=== PATIENT | female | born 1995 | race American Indian/Alaskan Native ===

== ENCOUNTER 2019-11-07 11:07 | Outpatient (CLI) | payer BC, MEDICAID ==
[2019-11-07] MEDS ORDERED: LACTATED RINGERS 1,000 ML ONE (12:24)
[2019-11-07 12:51] LABS: Hematocrit 31.5 % (30.3-42.9); Hemoglobin 10.5 gm/dl (10.1-14.3); Mean Corpuscular HGB Conc 33 % (30-34); Mean Corpuscular Volume 82 fl (79-97); Platelet Count 250 K/mm3 (140-440); Red Blood Count 3.84 M/mm3 (3.65-5.03); Red Cell Distribution Width 15.5 % (13.2-15.2)
[2019-11-07 13:08] LABS: Bacteria,Urine 1+ /HPF (Negative); Bilirubin,Urine NEG (Negative); Blood,Urine NEG (Negative); Color,Urine Yellow (Yellow); Mucus,Urine FEW /HPF; Protein,Urine <15 mg/dL mg/dL (Negative); Urobilinogen,Urine < 2.0 mg/dL (<2.0)
[2019-11-07] MEDS ORDERED: LACTATED RINGERS 1,000 ML IV ONE (13:08)
[2019-11-07 14:24] VITALS: BP 157/96
--- NOTE | 2019-11-07 14:47 | Event Note ---
Date: 11/07/19 Patient with CHTN, noncompliant with care +ve CTX, FFN positive BP>160/110 patient wants to leave,advised she needs to sign out against medical advice I advised patient that it is my recommendation that she be admitted for a course of steroids and a complete PIH workup She is aware of the risks of leaving against medical advise includes significant morbidity and mortality to herself and to the fetus She is advised to folow up in one week with her provider Maria Del Carmen Mendoza MD
[2019-11-07 15:16] LABS: Alanine Aminotransferase 27 units/L (7-56)
[2019-11-07 17:39] LABS: Uric Acid 5.1 mg/dL (3.5-7.6)
== END 2019-11-07 14:36 | disposition left against medical advice (07) ==
LOC: TRG 11:07
PROVIDERS: ATTEND Obstetrics & Gynecology
DX: O13.3 Gestational [pregnancy-induced] hypertension without significant proteinuria, third trimester (principal); O62.9 Abnormality of forces of labor, unspecified; Z3A.32 32 weeks gestation of pregnancy
CPT/HCPCS: 36415; 81001; 82565; 82731; 83615; 84450; 84460; 84550; 85027; 87086; 96360; J7120

== ENCOUNTER 2019-11-09 01:58 | Outpatient (CLI) | payer BC, MEDICAID ==
[2019-11-09] MEDS ORDERED: LACTATED RINGERS 1,000 ML IV ONE (02:08)
[2019-11-09 02:58] LABS: Hematocrit 32.8 % (30.3-42.9); Hemoglobin 10.9 gm/dl (10.1-14.3); Mean Corpuscular HGB Conc 33 % (30-34); Mean Corpuscular Volume 82 fl (79-97); Platelet Count 261 K/mm3 (140-440); Red Cell Distribution Width 15.3 % (13.2-15.2)
[2019-11-09 03:15] LABS: Alanine Aminotransferase 25 units/L (7-56)
[2019-11-09] MEDS ORDERED: ACETAMINOPHEN 500 MG TAB PO ONE (03:19)
[2019-11-09 03:20] LABS: Bacteria,Urine 1+ /HPF (Negative); Bilirubin,Urine NEG (Negative); Blood,Urine NEG (Negative); Color,Urine Yellow (Yellow); Mucus,Urine 2+ /HPF
[2019-11-09 03:50] LABS: Uric Acid 5.8 mg/dL (3.5-7.6)
[2019-11-09 04:09] VITALS: BP 127/65
[2019-11-09] MEDS ORDERED: BETAMET ACET/BETAMET NA PH 6 MG/ML INJ 5 ML MDV IM ONE (05:34)
== END 2019-11-09 05:05 | disposition home or self-care (01) ==
LOC: TRG 01:58
PROVIDERS: ATTEND Obstetrics & Gynecology
DX: O13.3 Gestational [pregnancy-induced] hypertension without significant proteinuria, third trimester (principal); O26.893 Other specified pregnancy related conditions, third trimester; R51 Headache; Z3A.32 32 weeks gestation of pregnancy
CPT/HCPCS: 36415; 59025; 81001; 82565; 83615; 84450; 84460; 84550; 85027; 87086; 96372; J0702

== ENCOUNTER 2019-11-10 11:15 | Outpatient (CLI) | payer BC, MEDICAID ==
[2019-11-10] MEDS ORDERED: BETAMET ACET/BETAMET NA PH 6 MG/ML INJ 5 ML MDV IM ONE (11:22)
== END 2019-11-10 11:37 | disposition home or self-care (01) ==
LOC: TRG 11:15
PROVIDERS: ATTEND Obstetrics & Gynecology
DX: O47.03 False labor before 37 completed weeks of gestation, third trimester (principal); Z3A.32 32 weeks gestation of pregnancy
CPT/HCPCS: 96372; J0702

== ENCOUNTER 2019-11-12 01:01 | Outpatient (CLI) | payer BC, MEDICAID ==
[2019-11-12 02:36] VITALS: BP 124/68
[2019-11-12] MEDS ORDERED: ACETAMINOPHEN 325 MG TAB PO ONE (02:41)
== END 2019-11-12 03:00 | disposition home or self-care (01) ==
LOC: TRG 01:01
PROVIDERS: ATTEND Obstetrics & Gynecology
DX: O36.8130 Decreased fetal movements, third trimester, not applicable or unspecified (principal); Z3A.32 32 weeks gestation of pregnancy

== ENCOUNTER 2019-11-14 01:05 | Inpatient (IN) | payer BC, MEDICAID ==
[2019-11-14] MEDS ORDERED: BUTORPHANOL 2 MG/1 ML INJ IV PRN (02:14)
[2019-11-14] MEDS ORDERED: fentaNYL 100 MCG/2 ML INJ IV PRN (02:14)
[2019-11-14] MEDS ORDERED: AMPICILLIN/NS 2 GM/100 ML 2 GM/100 ML BAG IV ONE (02:29)
[2019-11-14] MEDS ORDERED: AMPICILLIN/NS 2 GM/100 ML 2 GM/100 ML BAG IV SCH (03:00)
[2019-11-14] MEDS ORDERED: LACTATED RINGERS 1,000 ML IV SCH (03:00)
[2019-11-14 03:06] LABS: Hematocrit 34.9 % (30.3-42.9); Hemoglobin 11.5 gm/dl (10.1-14.3); Mean Corpuscular HGB Conc 33 % (30-34); Mean Corpuscular Volume 83 fl (79-97); Platelet Count 274 K/mm3 (140-440); Red Blood Count 4.22 M/mm3 (3.65-5.03); Red Cell Distribution Width 15.4 % (13.2-15.2)
[2019-11-14 03:36] LABS: Alanine Aminotransferase 19 units/L (7-56)
[2019-11-14 03:54] LABS: Uric Acid 4.8 mg/dL (3.5-7.6)
[2019-11-14] MEDS ORDERED: hydrALAZINE 20 MG/1 ML INJ IV ONE (04:12)
[2019-11-14] MEDS ORDERED: MAGNESIUM SULFATE 6 GM in SODIUM CHLORIDE 0.9% 100 ML IV ONE (05:00)
[2019-11-14] MEDS ORDERED: MAGNESIUM SULFATE 40GM/1000ML 40 GM/1,000 ML BAG IV SCH (05:00)
[2019-11-14 06:03] LABS: Bilirubin,Urine NEG (Negative); Blood,Urine MOD (Negative); Color,Urine Straw (Yellow); Mucus,Urine FEW /HPF; Protein,Urine <15 mg/dL mg/dL (Negative); Urobilinogen,Urine < 2.0 mg/dL (<2.0)
[2019-11-14] MEDS ORDERED: OXYTOCIN 20 UNIT/1000ML DRIP 20,000 MILLIUNITS/1,000 ML BAG IV ONE ×2 (07:31→10:19)
--- NOTE | 2019-11-14 07:54 | History and Physical Report ---
History of Present Illness Date of examination: 11/14/19 Date of admission: 11/14/19 01:23 Chief complaint: PPROM History of present illness: Patient admitted with PPROM GFM, no VB Past History - Obstetrical History : 1 Medications and Allergies Allergies Allergy/AdvReac Type Severity Reaction Status Date / Time No Known Allergies Allergy Verified 11/12/19 01:43 Home Medications Medication Instructions Recorded Confirmed Last Taken Type labetaloL [Labetalol 200mg TAB] 200 mg PO BID 11/12/19 11/14/19 11/13/19 17:00 History Pnv Plus Multivit Tab 1 tab PO QDAY 11/14/19 11/14/19 11/13/19 15:00 History Active Meds: Active Medications Butorphanol Tartrate (Stadol) 2 mg IV Q2H PRN PRN Reason: Pain , Severe (7-10) Last Admin: 11/14/19 04:18 Dose: 2 mg Documented by: Fentanyl (Sublimaze) 100 mcg IV Q2H PRN PRN Reason: Labor Pain Lactated Ringer's (Lactated Ringers) 1,000 mls @ 125 mls/hr IV DIRECT SUNIL Last Admin: 11/14/19 04:55 Dose: 75 mls/hr Documented by: Ampicillin Sodium (Ampicillin/Ns 2 Gm/100 Ml) 2 gm in 100 mls @ 100 mls/hr IV Q6H SUNIL; Protocol Last Admin: 11/14/19 02:30 Dose: 100 mls/hr Documented by: Magnesium Sulfate (Magnesium Sulfate 40gm/1000ml) 40 gm in 1,000 mls @ 50 mls/hr IV DIRECT SUNIL - Vital Signs Vital signs: Vital Signs Pulse BP 77 166/94 11/14/19 01:27 11/14/19 01:27 Temp Pulse Resp BP Pulse Ox 107 H 156/87 98 11/14/19 07:53 11/14/19 07:53 11/14/19 07:52 - Physical Exam Deep Tendon Reflex Grade: Normal +2 - Obstetrical FHR: category 1 Uterine Contraction Monitor Mode: External Cervical Dilatation: 0 Cervical Effacement Percentage: 0 station: -4 Results Result Diagrams: 11/14/19 02:20 11/14/19 02:20 Abnormal lab results 11/14/19 11/14/19 Range/Units 02:20 02:20 WBC 15.1 H (4.5-11.0) K/mm3 MCH 27 L (28-32) pg RDW 15.4 H (13.2-15.2) % Creatinine 0.5 L (0.7-1.2) mg/dL Lactate Dehydrogenase 428 H (91-180) units/L All other labs normal. Assessment and Plan admission steroids antibiotics magnesium sulfate CFM expect MARCELINO Mendoza MD
--- NOTE | 2019-11-14 08:01 | Procedure Note ---
OB Delivery Note - Delivery Date of Delivery: 11/14/19 Surgeon: CHANTEL OCONNOR Estimated blood loss: other (150ml) - Vaginal Delivery position: OA Intrapartum events: labor-<37 weeks, PROM->1hr before delivery Delivery induction: none Delivery monitor: external FHT, external uterine Route of delivery: Delivery placenta: spontaneous Delivery cord: 3 umbilical vessels Episiotomy: none Delivery laceration: none Delivery comments: PAtient noted to be complete. She pushed to delivery of a viable male with weight and . No nuchal cord, delivery of anterior shoulder atrauma tic.Cord clamped and cut and baby handed to waiting NICU team. Spontaneous cry at delivery. An intact placenta with three vessel cord delivered spontaneously Firm fundus. No lacerations. EBL 150ml. All sponge, needle and instrument counts correctx2. MOm and baby stable to /NICU. Vielka ROPER
[2019-11-14] MEDS ORDERED: HYDROcodone/ACETAMINOPHEN 5-325 MG TAB PO PRN (09:00)
[2019-11-14] MEDS ORDERED: ONDANSETRON 4 MG/2 ML INJ IV PRN (09:00)
[2019-11-14] MEDS ORDERED: PROMETHAZINE 25 MG RECT SUPP PR PRN (09:00)
[2019-11-14] MEDS ORDERED: diphenhydrAMINE 25 MG CAP PO PRN (09:00)
[2019-11-14] MEDS ORDERED: LANOLIN/ZINC/DIMETHICONE (LANSINOH) 7 GM TP PRN (09:00)
[2019-11-14] MEDS ORDERED: ACETAMINOPHEN 325 MG TAB PO PRN (09:00)
[2019-11-14] MEDS ORDERED: WITCH HAZEL/ GLYCERIN PAD TP PRN (09:00)
[2019-11-14] MEDS ORDERED: PROMETHAZINE 25 MG TAB PO PRN (09:00)
[2019-11-14] MEDS: PRENATAL VIT27-FE FUMARATE-FOLIC ACID VIT TAB PO SCH (13:38)
[2019-11-14] MEDS: IBUPROFEN 600 MG TAB PO SCH ×2 (13:38→23:35)
[2019-11-14] MEDS ORDERED: OXYTOCIN 20 UNIT/1000ML DRIP 20 UNITS/1,000 ML BAG IV SCH (14:30)
[2019-11-14] MEDS ORDERED: MAGNESIUM HYDROXIDE (MOM) ORAL LIQD UDC PO PRN (22:00)
[2019-11-15 00:18] LABS: Hemoglobin 10.1 gm/dl (10.1-14.3)
--- NOTE | 2019-11-15 10:47 | Progress Note ---
Assessment and Plan - Patient Problems (1) Status post normal vaginal delivery Current Visit: Yes Status: Acute Plan to address problem: PPD 1 - stable Continue routine orders Anticipate discharge in 24 hours (2) delivery Current Visit: Yes Status: Acute (3) Anemia due to blood loss, acute Current Visit: Yes Status: Acute Plan to address problem: Asymptomatic Iron therapy initiated (4) Gestational hypertension Current Visit: Yes Status: Acute Qualifiers: Trimester: third trimester Qualified Code(s): O13.3 - Gestational [-induced] hypertension without significant proteinuria, third trimester Plan to address problem: Asymptomatic - VSS, PIH labs wnl Continue Labetalol 100mg PO BID (5) Rh negative status during Current Visit: Yes Status: Acute Qualifiers: Trimester: third trimester Qualified Code(s): O26.893 - Other specified related conditions, third trimester; Z67.91 - Unspecified blood type, Rh negative Plan to address problem: Rhogam workup ordered Subjective - Subjective Date of service: 11/15/19 Principal diagnosis: PPD #1; s/p Interval history: see H&P and OB Delivery Procedure Note Patient reports: appetite normal, voiding normally, pain well controlled, am bulating normally, other (denies headache, visual disturbances or RUQ pain), no dizzy ambulation Runge: in NICU Objective - Vital Signs Latest vital signs: Vital Signs Temp Pulse Resp BP BP Pulse Ox 11/15/19 07:30 98.7 F 81 18 132/81 11/15/19 01:11 98.3 F 106 H 20 106/57 96 11/14/19 23:32 97.6 F 20 148/91 11/14/19 23:31 100 H 148/91 11/14/19 16:27 98.9 F 89 18 141/91 95 11/14/19 15:33 123/77 11/14/19 15:26 89 151/90 11/14/19 12:31 98.9 F 95 H 18 159/101 98 11/14/19 10:56 98.4 F 89 18 138/78 98 Intake and Output 11/14/19 11/15/19 11/15/19 23:59 07:59 15:59 Intake Total 240 Balance 240 Intake: Oral 240 Other: Total, Intake Amount 240 # Voids Void 1 - Exam Abdomen: Present: normal appearance, soft Vulva: both: normal Uterus: Present: normal, firm, fundal height below umbilicus Extremities: Present: normal Comments: small lochia - Labs Labs: Abnormal lab results 11/14/19 Range/Units 23:47 Hct 30.0 L (30.3-42.9) %
[2019-11-15] MEDS ORDERED: FERROUS SULFATE 325 MG TAB PO SCH (11:00)
[2019-11-15] MEDS: IBUPROFEN 600 MG TAB PO SCH (18:41)
[2019-11-15] MEDS: PRENATAL VIT27-FE FUMARATE-FOLIC ACID VIT TAB PO SCH (18:42)
--- NOTE | 2019-11-16 10:33 | Discharge Summary ---
Providers - Providers Date of Admission: 11/14/19 01:23 Date of discharge: 11/16/19 (1500) Attending physician: LIS RAMESH MD 11/14/19 02:18 Consult to Physician [CONS] Routine Comment: Consulting Provider: CATHI RANKIN Physician Instructions: Reason For Exam: rupture of membranes Primary care physician: LIS RAMESH MD Hospitalization Reason for admission: active labor, IUP - Delivery: Episiotomy: none Laceration: none Other procedures: none complications: none Discharge diagnosis: delivery [place] baby: male Hospital course: See admission H & P; OB delivery summary and PP progress notes Condition at discharge: Stable Disposition: DC-01 TO HOME OR SELFCARE - Discharge Diagnoses (1) Status post normal vaginal delivery Status: Acute (2) delivery Status: Acute (3) Anemia due to blood loss, acute Status: Acute Plan - Discharge Medications Prescriptions: Ferrous Sulfate [Feosol 325 MG tab] 325 mg PO QDAY 30 Days #30 tablet Ibuprofen [Motrin] 600 mg PO Q8H PRN #30 tablet PRN Reason: Pain - Provider Discharge Summary Activity: routine, no sex for 6 weeks, no heavy lifting 4 weeks, no strenuous exercise Diet: other (Iron rich diet) Instructions: routine Additional instructions: [] Smoking cessation referral if applicable(refer to patient education folder for contact #) [] Refer to [facility]'s [facility] Booklet Call your doctor immediately for: * Fever > 100.5 * Heavy vaginal bleeding ( >1 pad per hour) * Severe persistent headache * Shortness of breath * Reddened, hot, painful area to leg or breast * Drainage or odor from incision. - Follow up plan Follow up: LIS RAMESH MD [Primary Care Provider] - 6 Weeks
[2019-11-16] MEDS: IBUPROFEN 600 MG TAB PO SCH (10:56)
[2019-11-16] MEDS: PRENATAL VIT27-FE FUMARATE-FOLIC ACID VIT TAB PO SCH (10:56)
[2019-11-16 14:36] VITALS: BP 136/73
== END 2019-11-16 15:10 | disposition home or self-care (01) | DRG 805 ==
LOC: TRG 01:05 → LD 01:23 → OB 10:57
PROVIDERS: ADMIT Obstetrics & Gynecology; ATTEND Obstetrics & Gynecology
PROC: 10E0XZZ Delivery of Products of Conception, External Approach (ICD-10-PCS; principal; 2019-11-14)
PROC: 3E0334Z Introduction of Serum, Toxoid and Vaccine into Peripheral Vein, Percutaneous Approach (ICD-10-PCS; 2019-11-15)
DX: O42.913 Preterm premature rupture of membranes, unspecified as to length of time between rupture and onset of labor, third trimester (principal); O60.14X0 Preterm labor third trimester with preterm delivery third trimester, not applicable or unspecified; Z37.0 Single live birth; D62 Acute posthemorrhagic anemia; O13.4 Gestational [pregnancy-induced] hypertension without significant proteinuria, complicating childbirth; O26.893 Other specified pregnancy related conditions, third trimester; O99.02 Anemia complicating childbirth; Z3A.33 33 weeks gestation of pregnancy; Z67.41 Type O blood, Rh negative; Z23 Encounter for immunization
CPT/HCPCS: 36415; 81001; 82565; 83615; 83735; 84450; 84460; 84550; 85014; 85018; 85027; 85461; 86592; 86850; 86900; 86901; G0378; J0290; J0360; J0595; J2590; J2790; J3475; J7120